=== PATIENT | male | born 1990 | race Caucasian/White ===

== ENCOUNTER → 2016-09-15 | Outpatient (CLI) | payer MEDICAID ==
[2013-05-27 19:26] VITALS: BP 120/75
[~2016-09-15] MED LIST: ALBUTEROL0.09 MG/A4 IH; CEFTIN500 MG PO; FLEXERIL10 MG PO; GABAPENTIN100 MG PO; KETOROLAC10 MG PO; LYRICA75 MG PO; OXYCODONE15 MG PO; OXYCODONE30 MG PO; OXYCONTIN60 MG PO; OXYCONTIN80 MG PO; proair inhaler IH
== END ==
LOC: RAD 08-31 11:00
DX: E04.1 Nontoxic single thyroid nodule (principal); R73.9 Hyperglycemia, unspecified

== ENCOUNTER → 2016-11-26 | Outpatient (CLI) | payer MEDICAID ==
[2013-05-27 19:26] VITALS: BP 120/75
== END ==
LOC: LAB 08:47
DX: R73.9 Hyperglycemia, unspecified (principal); E04.1 Nontoxic single thyroid nodule

== ENCOUNTER 2019-06-05 23:51 | Emergency (ER) | payer SELFPAY ==
[2019-06-06] MEDS ORDERED: AUGMENTIN 875-1 EAC1 PO (00:48)
[2019-06-06] MEDS ORDERED: PERCOCET 325 MG1 TA2 PO (00:48)
[2019-06-06 01:00] VITALS: BP 124/79
== END 2019-06-06 01:00 | disposition home or self-care (01) ==
LOC: ED 23:51
DX: K05.219 Aggressive periodontitis, localized, unspecified severity (principal); K02.9 Dental caries, unspecified; F17.210 Nicotine dependence, cigarettes, uncomplicated; Z23 Encounter for immunization; Z79.1 Long term (current) use of non-steroidal anti-inflammatories (NSAID)
CPT/HCPCS: 90715; J1885

== ENCOUNTER 2020-07-08 06:50 | Emergency (ER) | payer SELFPAY ==
[~2020-07-08 06:50] MED LIST changes: +AUGMENTIN 875-1 EAC1 PO; +PERCOCET 325 MG1 TA2 PO
[2020-07-08 08:20] VITALS: BP 122/68
== END 2020-07-08 08:21 | disposition home or self-care (01) ==
LOC: ED 06:50
DX: M79.662 Pain in left lower leg (principal); F17.210 Nicotine dependence, cigarettes, uncomplicated

== ENCOUNTER 2023-06-06 03:43 | Emergency (ER) | payer SELFPAY ==
[~2023-06-06] VITALS: Ht 175.3 cm; Wt 69.5 kg
[2023-06-06] MEDS ORDERED: Clindamycin 150 MG CAP PO ONE (04:30)
[2023-06-06] MEDS ORDERED: CLEOCIN HCL300 MG PO (04:30)
[2023-06-06 04:45] VITALS: BP 114/64
== END 2023-06-06 04:45 | disposition home or self-care (01) ==
LOC: ED 03:43
DX: K02.9 Dental caries, unspecified (principal)

== ENCOUNTER 2023-09-18 06:08 | Emergency (ER) | payer SELFPAY ==
[~2023-09-18 06:08] MED LIST changes: +CLEOCIN HCL300 MG PO
[2023-09-18] MEDS ORDERED: BUPRENORPHINE H1 TA2 SL (06:22)
[2023-09-18 07:11] LABS: BASO # 0.02 K/mm3 (0.02-0.10); EOS # 0.14 K/mm3 (0.04-0.40); EOS % 2.9 % (0.0-4.0); HEMATOCRIT 39.8 % (42.0-52.0); HEMOGLOBIN 13.4 g/dL (13.5-18.0); LYMPH# 1.85 K/mm3 (1.50-4.00); MEAN CELL VOLUME 87 fl (78-100); MEAN CORPUSCULAR HEMOGLOBIN 29 pg (27-31); MEAN CORPUSCULAR HGB CONC 34 g/dL (33-37); MEAN PLATELET VOLUME 9.1 fl (7.4-10.4); NEU # 2.26 K/mm3 (1.40-6.50); PLATELET COUNT 227 K/mm3 (130-400); RED BLOOD COUNT 4.57 M/mm3 (4.20-5.60); RED CELL DISTRIBUTION WIDTH 11.9 % (11.5-14.5); WHITE BLOOD COUNT 4.8 K/mm3 (4.8-10.8)
[2023-09-18 07:18] LABS: ALBUMIN 4.1 g/dL (3.5-5.0)
[2023-09-18 07:19] LABS: SODIUM 142 mmol/L (136-145)
[2023-09-18 07:20] LABS: CALCIUM 9.3 mg/dL (8.3-10.5)
[2023-09-18 07:21] LABS: GLUCOSE 95 mg/dL (75-110); TOTAL PROTEIN 6.5 g/dL (6.4-8.3)
[2023-09-18 07:24] LABS: CARBON DIOXIDE 29 mmol/L (22-29)
[2023-09-18 07:25] LABS: TOTAL BILIRUBIN 0.3 mg/dL (0.2-1.2)
[2023-09-18 07:26] LABS: AST-SGOT 13 U/L (5-34)
[2023-09-18 07:27] LABS: ALT/SGPT 14 U/L (0-55)
[2023-09-18 07:45] LABS: D-DIMER 0.12 mg/L FEU (0.15-0.50)
[2023-09-18 08:15] VITALS: BP 125/80
== END 2023-09-18 08:15 | disposition home or self-care (01) ==
LOC: ED 06:08
PROVIDERS: Family Medicine
DX: R20.0 Anesthesia of skin (principal); R20.2 Paresthesia of skin; F17.210 Nicotine dependence, cigarettes, uncomplicated